=== PATIENT | male | born 1970 | race African-American/Black ===

== ENCOUNTER 2016-05-29 00:45 | Emergency (ER) | payer MEDICARE, MEDICAID ==
[~2016-05-29] VITALS: Ht 193 cm; Wt 156.0 kg
[~2016-05-29 00:45] MED LIST: ALBU2.5V13; AMLO1CAP; OXYCONTIN
[2016-05-29] MEDS ORDERED: HYDROCODONE/ACETAMINOPHEN 10/325MG TABLET PO ONE ×2 (01:15→03:45)
[2016-05-29 01:27] LABS: BASOPHILS % 0.9 % (0.0-2.0); EOSINOPHILS % 1.6 % (0.0-5.0); HEMATOCRIT. 38.6 % (42.0-52.0); HEMOGLOBIN. 12.6 g/dL (14.0-18.0); LYMPHOCYTES % 23.1 % (20.0-50.0); MEAN CORPUSCULAR HEMOGLOBIN 28.9 pg (28.0-32.0); MEAN CORPUSCULAR HGB CONC 32.5 g/dL (31.0-37.0); MEAN CORPUSCULAR VOLUME 88.8 fL (80.0-94.0); NEUTROPHILS % 66.4 % (40.0-76.0); PLATELET 252 x1000/uL (130-400); RED BLOOD CELL COUNT 4.35 mill/uL (4.7-6.1); RED CELL DISTRIBUTION WIDTH 13.6 % (11.6-14.6); WHITE BLOOD COUNT 12.7 x1000/uL (4.5-11.0)
[2016-05-29 01:33] LABS: CHLORIDE 104 mEq/L (98-107); INDEX HEMOLYSI 1 (1-3); INDEX ICTERIC 1 (1-4); INDEX LIPEMIC 1 (1-3)
[2016-05-29 01:42] LABS: ALANINE AMINOTRANSFERASE 27 IU/L (13-61); ALBUMIN 3.3 g/dL (3.4-5.0); ANION GAP 13; CALCIUM 8.3 mg/dL (8.5-10.1); CARBON DIOXIDE 26 mEq/L (21-32); UREA NITROGEN BLOOD 7 mg/dL (7-21); eGFR > 60 mL/min (>60)
[2016-05-29] MEDS ORDERED: MORPHINE SULFATE 10 MG/ML CPJ IM ONE (02:30)
[2016-05-29] MEDS ORDERED: ONDANSETRON 4MG ODT PO ONE (02:30)
[2016-05-29 04:30] VITALS: BP 135/79
== END 2016-05-29 04:40 | disposition home or self-care (01) ==
LOC: ER 00:50
DX: S93.602A Unspecified sprain of left foot, initial encounter (principal); Z88.6 Allergy status to analgesic agent; Z79.899 Other long term (current) drug therapy; J45.909 Unspecified asthma, uncomplicated; I10 Essential (primary) hypertension; M54.9 Dorsalgia, unspecified; G89.29 Other chronic pain; F12.10 Cannabis abuse, uncomplicated; W01.0XXA Fall on same level from slipping, tripping and stumbling without subsequent striking against object, initial encounter; Y93.89 Activity, other specified; Y99.9 Unspecified external cause status; Y92.89 Other specified places as the place of occurrence of the external cause
CPT/HCPCS: 29515; 36415; 73610; 73630; 80053; 85025; 85651; 96372; 99285; J2270; Q0162

== ENCOUNTER 2016-06-22 00:41 | Emergency (ER) | payer MEDICARE, MEDICAID ==
[~2016-06-22] VITALS: Ht 193 cm; Wt 147.0 kg
[2016-06-22] MEDS ORDERED: ONDANSETRON HCL 4MG TABLET PO ONE (02:30)
[2016-06-22 02:42] LABS: BASOPHILS % 0.9 % (0.0-2.0); EOSINOPHILS % 2.9 % (0.0-5.0); HEMATOCRIT. 39.5 % (42.0-52.0); HEMOGLOBIN. 12.9 g/dL (14.0-18.0); LYMPHOCYTES % 26.1 % (20.0-50.0); MEAN CORPUSCULAR HEMOGLOBIN 28.5 pg (28.0-32.0); MEAN CORPUSCULAR HGB CONC 32.6 g/dL (31.0-37.0); MEAN CORPUSCULAR VOLUME 87.3 fL (80.0-94.0); MEAN PLATELET VOLUME 8.4 fl (7.4-10.4); MONOCYTES % 9.9 % (2.0-8.0); NEUTROPHILS % 60.2 % (40.0-76.0); PLATELET 224 x1000/uL (130-400); RED BLOOD CELL COUNT 4.53 mill/uL (4.7-6.1); RED CELL DISTRIBUTION WIDTH 13.8 % (11.6-14.6); WHITE BLOOD COUNT 8.9 x1000/uL (4.5-11.0)
[2016-06-22] MEDS ORDERED: HYDROCODONE/ACETAMINOPHEN 10/325MG TABLET PO ONE (02:45)
[2016-06-22 02:46] LABS: CHLORIDE 104 mEq/L (98-107); INDEX HEMOLYSI 1 (1-3); INDEX ICTERIC 1 (1-4); INDEX LIPEMIC 1 (1-3)
[2016-06-22 02:54] LABS: ALANINE AMINOTRANSFERASE 24 IU/L (13-61); ALBUMIN 3.5 g/dL (3.4-5.0); ANION GAP 12; CALCIUM 8.5 mg/dL (8.5-10.1); CARBON DIOXIDE 29 mEq/L (21-32); UREA NITROGEN BLOOD 10 mg/dL (7-21); eGFR > 60 mL/min (>60)
[2016-06-22 04:17] VITALS: BP 138/85
== END 2016-06-22 05:21 | disposition home or self-care (01) ==
LOC: ER 00:41
DX: M79.672 Pain in left foot (principal); Z88.6 Allergy status to analgesic agent; Z79.899 Other long term (current) drug therapy; I10 Essential (primary) hypertension; J45.909 Unspecified asthma, uncomplicated
CPT/HCPCS: 29515; 36415; 80053; 85025; 99284; Q0162

== ENCOUNTER 2016-11-04 13:35 | Emergency (ER) | payer MEDICARE, MEDICAID ==
[~2016-11-04] VITALS: Ht 193 cm; Wt 154.0 kg
[2016-11-04 15:39] VITALS: BP 138/86
[2016-11-04] MEDS ORDERED: ACETAMINOPHEN 325MG TABLET PO ONE (15:45)
[2016-11-04] MEDS ORDERED: CYCLOBENZAPRINE 10MG TABLET PO ONE (15:45)
== END 2016-11-04 15:42 | disposition home or self-care (01) ==
LOC: ER 13:48
DX: S46.912A Strain of unspecified muscle, fascia and tendon at shoulder and upper arm level, left arm, initial encounter (principal); S29.011A Strain of muscle and tendon of front wall of thorax, initial encounter; I10 Essential (primary) hypertension; X58.XXXA Exposure to other specified factors, initial encounter; Y93.89 Activity, other specified; Y92.89 Other specified places as the place of occurrence of the external cause; J45.909 Unspecified asthma, uncomplicated; Z88.6 Allergy status to analgesic agent
CPT/HCPCS: 71010; 93005; 99284

== ENCOUNTER 2018-05-26 04:33 | Emergency (ER) | payer MEDICARE, MEDICAID ==
[~2018-05-26] VITALS: Ht 193 cm; Wt 164.0 kg
[2018-05-26 04:41] VITALS: BP 160/96
== END 2018-05-26 09:58 | disposition left against medical advice (07) ==
LOC: ER 04:33
DX: M25.552 Pain in left hip (principal); Z53.21 Procedure and treatment not carried out due to patient leaving prior to being seen by health care provider

== ENCOUNTER 2019-01-24 20:54 | Emergency (ER) | payer MEDICARE, MEDICAID ==
[~2019-01-24] VITALS: Ht 193 cm; Wt 159.0 kg
[2019-01-24] MEDS ORDERED: ONDANSETRON 4MG ODT PO ONE (22:45)
[2019-01-24] MEDS ORDERED: MORPHINE SULFATE 10 MG/ML CPJ IM ONE (22:45)
[2019-01-24] MEDS ORDERED: HYDROCODONE/ACETAMINOPHEN 10/325MG TABLET PO ONE (23:45)
[2019-01-25 01:01] VITALS: BP 132/69
== END 2019-01-25 01:02 | disposition home or self-care (01) ==
LOC: ER 20:54
DX: S70.02XA Contusion of left hip, initial encounter (principal); J45.909 Unspecified asthma, uncomplicated; I10 Essential (primary) hypertension; E66.01 Morbid (severe) obesity due to excess calories; Z68.41 Body mass index [BMI] 40.0-44.9, adult; Z88.6 Allergy status to analgesic agent; W01.0XXA Fall on same level from slipping, tripping and stumbling without subsequent striking against object, initial encounter; Y93.89 Activity, other specified; Y92.018 Other place in single-family (private) house as the place of occurrence of the external cause
CPT/HCPCS: 72100; 73522; 96372; 99283; J2270; Q0162

== ENCOUNTER 2019-03-10 00:52 | Emergency (ER) | payer MEDICARE, MEDICAID ==
[~2019-03-10] VITALS: Ht 193 cm; Wt 159.0 kg
[2019-03-10] MEDS ORDERED: ACETAMINOPHEN 500MG TABLET PO ONE (02:45)
[2019-03-10] MEDS ORDERED: DIAZEPAM 5 MG TABLET PO ONE (02:45)
[2019-03-10] MEDS ORDERED: MORPHINE SULFATE 10 MG/ML CPJ IM ONE (04:15)
[2019-03-10 04:38] VITALS: BP 127/70
== END 2019-03-10 04:45 | disposition home or self-care (01) ==
LOC: ER 00:52
DX: M54.5 Low back pain (principal); M25.552 Pain in left hip; G89.29 Other chronic pain; I10 Essential (primary) hypertension; Z88.6 Allergy status to analgesic agent; W01.0XXA Fall on same level from slipping, tripping and stumbling without subsequent striking against object, initial encounter; Y93.89 Activity, other specified; Y92.018 Other place in single-family (private) house as the place of occurrence of the external cause
CPT/HCPCS: 96372; 99283; J2270